=== PATIENT | male | born 1970 | race Caucasian/White ===

== ENCOUNTER 2017-08-11 13:41 | Emergency (ER) | payer OTHER ==
[~2017-08-11] VITALS: Ht 170.1 cm; Wt 63.5 kg
[~2017-08-11 13:41] MED LIST: AMOXICILLIN500 M2 PO; HYDROCODONE BIT1 T11 PO; NKHM; TRAMADOL HCL50 MG PO; VISTARIL25 MG PO
[2017-08-11] MEDS ORDERED: CEPHALEXIN500 M1 PO (14:52)
[2017-08-11] MEDS ORDERED: SEPTDS PO (14:52)
== END 2017-08-11 15:24 | disposition home or self-care (01) ==
LOC: ED 13:41
DX: L03.311 Cellulitis of abdominal wall (principal); F10.10 Alcohol abuse, uncomplicated; Z72.0 Tobacco use; Z71.6 Tobacco abuse counseling; Z79.899 Other long term (current) drug therapy